=== PATIENT | female | born 1970 | race Caucasian/White ===

== ENCOUNTER 2021-07-13 10:21 | Emergency (ER) | payer OTHER, SELFPAY ==
[2021-07-13 10:23] VITALS: BP 176/94; PULSE 70; RESP 17; TEMP 36; O2SAT 100; BMI 31.2
--- NOTE | 2021-07-13 10:24 | NURSING ---
NO OLD EKGS
[2021-07-13 10:31] VITALS: BP 142/99; PULSE 80; RESP 16; O2SAT 98
--- NOTE | 2021-07-13 10:43 | EKG12_ITS ---
Test Reason : CP Blood Pressure : / mmHG Vent. Rate : 070 BPM Atrial Rate : 070 BPM P-R Int : 142 ms QRS Dur : 082 ms QT Int : 444 ms P-R-T Axes : 048 059 042 degrees QTc Int : 479 ms Normal sinus rhythm Nonspecific ST abnormality Abnormal ECG Confirmed by MILKA PATEL, BISHOP ([id number]), offline editor RICK CARTER ([id number]) on 07/14/2021 10:18:44 A M Referred By: PL Confirmed By:SEFERINO JARQUIN MD
--- NOTE | 2021-07-13 10:44 | ED.VIS.CHEST ---
HPI History of Present Illness Chief Complaint: Chest Pain Informant: patient Narrative Narrative: Patient presents with actually left shoulder and neck area pain that radiates down her left arm to about the elbow. She also has a little bit of discomfort toward the right side. Nothing really makes his better or worse. She is not actually having pain in the chest. She also has noticed some mild dyspnea. This is all been going on for about 5 days. She notices a little bit of dyspnea with exertion such as walking through the snow or wearing a mask. Cough or fevers. No headaches or myalgias. No numbness tingling or weakness. Nothing consistently makes the symptoms better. They have been there constantly. Moving the neck does not seem to notably bother her. At first she thought it might be a muscle soreness but does not think that this is likely now. Patient has no history of heart disease. She does have a history of pulmonary hypertension that was found about 5 years ago. She had a heart catheterization at that time that required no stenting or showed no sign of vascular disease. She does not have a history of DVT or PE but she did have what was thought to be a superficial clot behind her left leg about 6 months ago. This was felt and treated with warm compresses and resolved. No ultrasound was done. [facility] Medical History GERD (gastroesophageal reflux disease) HLD (hyperlipidemia) HTN (hypertension) Home Medications atorvastatin 20 mg PO DAILY 07/13/21 [History Last Taken Unknown] carvedilol 6.25 mg PO BID 07/13/21 [History Last Taken Unknown] lisinopril 5 mg PO DAILY 07/13/21 [History Last Taken Unknown] pantoprazole 40 mg PO DAILY 07/13/21 [History Last Taken Unknown] Allergy/AdvReac Type Severity Reaction Status Date / Time No Known Allergies Allergy Verified 07/13/21 10:22 Surgical History Hx of tonsillectomy Previous section Social History Smoking Status: Current every day smoker tobacco type: cigarettes ROS ROS ED Constitutional Constitutional ED: Reports other Details: Positive malaise ; Denies fever(s) or subjective ENT ENT ED: Denies ear pain, rhinorrhea or sore throat Cardiovascular Cardiovascular: Reports as per HPI; Denies chest pain Respiratory/Chest Respiratory/Chest: Reports dyspnea and dyspnea on exertion Gastrointestinal Gastrointestinal: Denies nausea or vomiting Genitourinary Genitourinary ED: Denies dysuria Musculoskeletal Musculoskeletal: Reports neck pain Integumentary Denies rash Neurologic Neurologic: Denies headache(s), paresthesias or weakness Endocrine Endocrinology: Denies polydipsia or polyuria Hematologic/Lymphatic Hematologic/Lymphatic: Denies easy bleeding or easy bruising Allergic/Immunologic Allergic/Immunologic ED: Denies mouth swelling or urticaria EXAM Physical Exam Const Vital Signs: 07/13/21 10:23 07/13/21 10:31 07/13/21 10:50 Temperature 96.8 F L Temperature Source Temporal Pulse Rate 70 80 Respiratory Rate 17 16 Respiratory Effort Normal Non-Labored Blood Pressure 176/94 H 142/99 H Blood Pressure Mean 121 113 Pulse Ox 100 98 98 Oxygen Delivery Method Room Air Room Air Room Air 07/13/21 11:38 Temperature Temperature Source Pulse Rate 68 Respiratory Rate 15 Respiratory Effort Blood Pressure 121/81 H Blood Pressure Mean 94 Pulse Ox 97 Oxygen Delivery Method Room Air Positive well nourished and well developed General Appearance ED: well developed and NAD HEENT Reports moist mucous membranes normocephalic and atraumatic Eyes EOMs intact bilaterally Neck no lymphadenopathy and supple Neck Narrative: No double change with range of motion or palpation. Chest Wall inspection of chest normal and palpation of chest normal Resp normal respiratory effort and clear to auscultation bilaterally Effort and Inspection: Negative for respiratory distress Auscultation: Negative for rales, rhonchi or wheezes Cardio regular rate and regular rhythm GI normal to inspection, nondistended, normoactive bowel sounds, soft to palpation and non-tender Back/Spine no CVA tenderness Extremity normal to inspection General Extremety ED: Negative for edema, pulses abnormal or tenderness General Extremity: Negative for edema or pulses abnormal Neuro Sensorium / Orientation: awake and alert Psych mental status grossly normal Skin no rashes or lesions noted MDM MDM MDM Narrative Medical decision making narrative: Patient CBC is normal. D-dimer is negative. Electrolytes are overall normal other than minimal decrease of potassium and elevation of the glucose that are not causing her symptoms. Troponin is negative. Chest x-ray is negative. Covid and influenza are negative. All her studies are normal with multiple days of symptoms. I think this is likely a nonspecific viral illness. There could be a component of radiculopathy but this does not explain her overall sense of malaise. Patient also has normal heart rate respiratory rate oxygen level and blood pressure. I think going home is appropriate. She is comfortable with this plan. Lab Data Attestation: I reviewed the patient's lab results. Labs: Laboratory Results - last 24 hr 07/13/21 07/13/21 07/13/21 10:45 10:45 10:45 WBC 9.4 RBC 4.28 Hgb 13.9 Hct 40.0 MCV 93.5 MCH 32.5 H MCHC 34.8 RDW Std Deviation 43.6 RDW Coeff of [place] 12.7 Plt Count 308 MPV 10.7 Immature Gran % (Auto) 0.400 Neut % (Auto) 58.4 Lymph % (Auto) 31.2 Shannon % (Auto) 7.5 Eos % (Auto) 1.9 Baso % (Auto) 0.6 Absolute Neuts (auto) 5.5 Absolute Lymphs (auto) 2.92 Nucleated RBC % 0 D-Dimer Quant (PE/DVT) 0.31 Sodium 138 Potassium 3.4 L Chloride 102 Carbon Dioxide 30.0 Anion Gap 6 BUN 15 Creatinine 0.69 Estim Creat Clear Calc 99.67 Est GFR (MDRD) Af Amer 114 Est GFR (MDRD) Non-Af 95 BUN/Creatinine Ratio 21.7 H Glucose 114 H Calcium 9.2 Troponin I High Sens 4 Radiography Diagnostic Testing: Clinical Impression(s) from Imaging Studies Chest X-Ray 07/13/21 10:52 IMPRESSION: Normal x-ray examination of the chest. Electronically Signed: Thomas Ceballos MD at 11:51 EST , EKG Initial EKG: Comments: EKG done for chest pain read by me shows a normal sinus rhythm with overall rate of 70. No ectopy. There are some diffuse nonspecific ST and T wave changes but no sign of acute infarct. ID interval, QRS duration are normal. QTc is toward the longer and at 479 ms. Discharge Plan Triage Chief Complaint: Chest Pain ED Provider: Listerman,Peter Dx/Rx/DC Orders Clinical Impression: Left shoulder pain, Malaise Instructions: ED Chest Pain, Uncertain Cause Prescriptions: No Action carvedilol 6.25 mg tablet 6.25 mg PO BID RF: 0 atorvastatin 20 mg tablet 20 mg PO DAILY RF: 0 pantoprazole 40 mg tablet,delayed release (DR/EC) 40 mg PO DAILY RF: 0 lisinopril 5 mg tablet 5 mg PO DAILY RF: 0 Primary Care Provider: Sonia Deasi Referrals: Sonia Desai MD [Primary Care Provider] - 3-5 Days Disposition Disposition: Home, Self Care
[2021-07-13] MEDS: Aspirin 81 MG TAB.CHEW 324 MG PO (10:49)
[2021-07-13 10:50] VITALS: O2SAT 98
[2021-07-13 10:51] LABS: Absolute Lymphocyte Count 2.92 X10^3/uL (0.83-4.51); Absolute Neutrophil Count 5.5 X10^3/uL (2.0-7.7); Basophil# 0.06 X10^3/uL; Basophil% 0.6 % (0-1); Eosinophil# 0.18 X10^3/uL; Eosinophils% 1.9 % (0-5); Hemoglobin 13.9 g/dL (12.0-15.0); Lymphocyte # 2.92 X10^3/ul (0.83-4.51); Lymphocyte % 31.2 % (19-41); Mean Corp Hgb Conc 34.8 g/dL (32-36); Mean Corpuscular Hgb 32.5 pg (27.0-32.0); Mean Corpuscular Volume 93.5 fL (81-99); Mean Platelet Vol. 10.7 fl (6.2-12.0); Monocyte% 7.5 % (0-10); NRBC Flagged by Analyzer 0 % (0-5); Neutrophil # 5.45 X10^3/uL (2.7-7.7); Neutrophil % 58.4 % (47-70); Platelet Count 308 K/mm3 (150-450); RBC Distribution Width CV 12.7 % (11.6-14.6); RBC Distribution Width SD 43.6 fl (35.1-43.9); Red Blood Count 4.28 M/mm3 (4.2-5.4); White Blood Count 9.4 K/mm3 (4.4-11.0)
--- NOTE | 2021-07-13 10:52 | RAD_ITS ---
STUDY: X-RAY CHEST REASON FOR EXAM: Female, 50 years old. Chest pain TECHNIQUE: Single AP portable view of the chest. COMPARISON: None. FINDINGS: EKG electrodes are seen. The lungs are clear and expanded. There is no demonstrated pleural abnormality. Normal size heart. Normal mediastinum and [place]. Normal visualized pulmonary arteries. There is atherosclerotic tortuosity of the aortic arch and descending thoracic aorta. Normal visualized thoracic spine. Normal visualized ribs, clavicles, and shoulders. There is no demonstrated abnormality of the visualized soft tissue structures of the upper abdomen. RAD/Chest 1 View (Portable) IMPRESSION: Normal x-ray examination of the chest. Electronically Signed: Thomas Ceballos MD at 11:51 EST ,
[2021-07-13 11:08] LABS: D-Dimer Quantitative (DVT/PE) 0.31 FEU/ug/m (0.27-0.49)
[2021-07-13 11:10] LABS: Anion Gap 6 (5-15); BUN 15 mg/dL (7-18); BUN/Creat Ratio 21.7 RATIO (10-20); Calcium,Total 9.2 mg/dL (8.5-10.1); Chloride 102 mmol/L (98-107); Creatinine, Serum 0.69 mg/dL (0.55-1.02); EST Glomerular Filtration Rate 95 mL/min (>60); Est Glom Filt Rate - Afr Amer 114 mL/min (>60); Estimated Creatinine Clearance 99.67 ml/min; Glucose 114 mg/dL (74-106); Potassium 3.4 mmol/L (3.5-5.1); Sodium Level 138 mmol/L (136-145); Troponin-I HS 4 pg/mL (3.0-54.0)
[2021-07-13 11:38] VITALS: BP 121/81; PULSE 68; RESP 15; O2SAT 97
== END 2021-07-13 12:26 | disposition home or self-care (01) ==
PROVIDERS: Emergency Provider Emergency Medicine; PCP Family Medicine; Visit Provider Emergency Medicine
DX: M25.512 Pain in left shoulder (principal); I27.20 Pulmonary hypertension, unspecified; R53.81 Other malaise; M54.2 Cervicalgia; Z20.822 Contact with and (suspected) exposure to COVID-19; R06.00 Dyspnea, unspecified; I10 Essential (primary) hypertension; E78.5 Hyperlipidemia, unspecified; K21.9 Gastro-esophageal reflux disease without esophagitis; F17.210 Nicotine dependence, cigarettes, uncomplicated; Z79.899 Other long term (current) drug therapy
CPT/HCPCS: 71045; 80048; 84484; 85025; 85379; 87426; 87804; 93005; 99285; A4216